=== PATIENT | female | born 1985 | race Caucasian/White ===

== ENCOUNTER 2018-12-28 18:24 | Emergency (ER) | payer OTHER, SELFPAY ==
[2018-12-28] MEDS ORDERED: Ketorolac Tromethamine 30 MG/ML VIAL ONE (18:44)
--- NOTE | 2018-12-28 18:58 | RAD ---
EXAM: 4 views of the right knee HISTORY: Knee pain after fall COMPARISON: None FINDINGS: No knee effusion is seen. There is no evidence of acute fracture or dislocation. Moderate m edial femorotibial degenerative changes are seen. No soft tissue swelling is present. IMPRESSION: Degenerative changes without evidence of acute osseous abnormality.
== END 2018-12-28 19:46 | disposition home or self-care (01) ==
LOC: SCSER 18:24
DX: S83.91XA Sprain of unspecified site of right knee, initial encounter (principal); X50.9XXA Other and unspecified overexertion or strenuous movements or postures, initial encounter
CPT/HCPCS: 96372; J1885